=== PATIENT | male | born 1950 | race Hispanic/Latino ===

== ENCOUNTER 2021-11-12 02:18 | Emergency (ER) | payer MEDICARE, OTHER ==
[~2021-11-12] VITALS: Ht 165.1 cm; Wt 71.2 kg
[2021-11-12 02:20] VITALS: BP 92/61
[2021-11-12] MEDS ORDERED: IBUPROFEN 600 MG TABLET PO ONE (02:30)
[2021-11-12] MEDS ORDERED: IBUPROFEN 600 MG TABLET ONE (02:36)
[2021-11-12] MEDS ORDERED: AZIT250T PO (03:49)
[2021-11-12] MEDS ORDERED: CEFP200T14 PO (03:49)
[2021-11-12] MEDS ORDERED: AZITHROMYCIN 250 MG TABLET PO ONE (04:00)
[2021-11-12] MEDS ORDERED: CEFTRIAXONE 1G VIAL IM ONE (04:00)
== END 2021-11-12 04:02 | disposition home or self-care (01) ==
LOC: EDH 02:18
DX: J18.9 Pneumonia, unspecified organism (principal); Z20.822 Contact with and (suspected) exposure to COVID-19; E78.00 Pure hypercholesterolemia, unspecified; Z79.1 Long term (current) use of non-steroidal anti-inflammatories (NSAID); Z87.891 Personal history of nicotine dependence
CPT/HCPCS: 99284; 71045; 87635; 87804 ×2; 96372; C9803; J0696

== ENCOUNTER 2024-11-29 23:36 | Emergency (ER) | payer MEDICARE, OTHER ==
[~2024-11-29] VITALS: Ht 165.1 cm; Wt 68.0 kg
[~2024-11-29 23:36] MED LIST: AZIT250T PO; CEFP200T14 PO
[2024-11-29 23:37] VITALS: TEMP 98.6
--- NOTE | 2024-11-30 00:18 | NUR ---
REPORT TO SIMON ALVAREZ
[2024-11-30 00:26] VITALS: BP 123/70; PULSE 68; RESP 15; O2SAT 100
--- NOTE | 2024-11-30 00:40 | ERN ---
General Chief Complaint: Finger Injury Stated Complaint: LEFT 3RD FINGER " LOCKED" Time Seen by MD: 23:37 Time Seen by Midlevel: 23:37 Source: patient History of Present Illness Initial Comments 74-year-old male with a history of trigger finger presents the ER with the left 3rd finger locked in a flexion position. Reports similar episodes in the past that normally resolve on their own however this episode he has been unable to fully extend his fingers so he decided to report the ER for further evaluation. Patient has no pain and denies any other concerns at this time. Allergies: Coded Allergies: No Known Allergies (Unverified Allergy, Unknown, 11/12/21) Home Meds Active Scripts Azithromycin (Zithromax) 250 Mg Tablet, 250 MG PO DAILY for 4 Days, #4 TAB 0 Refills Prov:VALENTIN DIOP MD 11/12/21 Cefpodoxime Proxetil (Cefpodoxime Proxetil) 200 Mg Tablet, 200 MG PO BID for 7 Days, #14 TAB 0 Refills Prov:VALENTIN DIOP MD 11/12/21 Past Medical History Past Medical History: Arthritis, High Cholesterol Past Surgical History: Other Surgical History Other: LFT SHOULDER Social History Social History: Other ROS Dictation CONSTITUTIONAL: Negative except for HPI HEAD/FACE: Negative except for HPI EENT: Negative except for HPI RESPIRATORY: Negative except for HPI GASTROINTESTINAL/ABDOMINAL: Negative except for HPI GENITOURINARY: Negative except for HPI MUSCULOSKELETAL: Negative except for HPI INTEGUMENTARY: Negative except for HPI NEUROLOGICAL/PSYCH: Negative except for HPI HEMATOLOGIC/LYMPHATIC: Negative except for HPI All Systems Negative, Except as noted above. 13 point review of systems assessed and all negative except for above. Physical Exam Physical Exam Dictation PHYSICAL EXAM: GENERAL: alert,, awake oriented x 3 HEENT: EOMI, Sclera non icteric, moist mucosa NECK: Supple, no JVD, trachea midline LUNGS: Clear breath sounds bilaterally. No wheezes HEART: Regular rate and rhythm. Normal S1 and S2, without murmurs ABD: Abdomen soft, nontender. Bowel sounds present EXT: Left 5th digit is stuck in a flexion position consistent with trigger finger, no signs of external trauma NEURO: Alert and oriented to person, follows commands MDM MDM: 74-year-old male presents with the trigger finger stuck in a flexion position. On exam I am unable to extend finger. I offered a steroid injection to the affected area but patient refused. Patient states he will follow up with his doctor on Sunday for further evaluation. Refused pain medication. Differential diagnosis: Trigger finger, fracture contusion There are no social concerns with this patient. Prescription drug management Prescriptions will include: None Medical management and examination interpretation discussions were had by me with other qualified healthcare professionals as indicated for the patient's care. ED Course Vital Signs Date Time Temp Pulse Resp B/P (MAP) Pulse Ox O2 Delivery O2 Flow Rate FiO2 11/30/24 00:26 68 15 123/70 100 Room Air* 0 21 11/29/24 23:37 98.6 81 18 132/74 98 Room Air DX & DISP Disposition: Discharge Departure Impression: Primary Impression: Trigger finger Condition: Stable Additional Instructions: You will need to see an orthopedic surgery for a definitive treatment. In the meantime you may take [id number] pain medication like ibuprofen or naproxen for pain relief. You may soak your hand in warm water to reduce inflammation. Once the trigger finger is released please wear a finger splint to avoid another episode. Referrals: CHADWICK VELEZ M.D. (PCP) ABRAM ALARCON MD Time of Disposition: 00:39 I have reviewed the case, and I agree with, Diagnosis and Plan I performed the substantive portion of the visit. I have reviewed and personally made and approve the management plan that is documented in the note by myself or the ANGELA. I acknowledge for responsibility for the patient's management plan. JADEN HERRING PAC Nov 30, 2024 00:40
== END 2024-11-30 00:47 | disposition home or self-care (01) ==
LOC: EDH 23:36
DX: M65.352 Trigger finger, left little finger (principal); E78.00 Pure hypercholesterolemia, unspecified; M19.90 Unspecified osteoarthritis, unspecified site
CPT/HCPCS: 99282